=== PATIENT | male | born 1945 | race Two or more races ===

== ENCOUNTER 2016-12-13 14:38 | Emergency (ER) | payer BC, MEDICARE ==
[2016-12-13 15:03] VITALS: BP 126/46
[2016-12-13] MEDS ORDERED: Sodium Chloride 0.9% 1,000 ML IV SCH (15:15)
--- NOTE | 2016-12-13 15:19 | EDM.PDOC ---
ED HPI GENERAL MEDICAL PROBLEM - General Chief Complaint: ENT Problem Stated Complaint: COLLAPSED IN TUB, WEAKNESS, [id number] Time Seen by Provider: 12/13/16 15:15 Source of Information: Reports: Patient, Family () History Limitations: Reports: No Limitations - History of Present Illness INITIAL COMMENTS - FREE TEXT/NARRATIVE: 71 yo white male c/o being sick since 2016 and right sided jaw/neck mass with tenderness and fevers. Pt. has been treated with multiple oral antibiotics. Pt. also dx. with pneumonia recently. Pt. presents here w/ increasing weakness. Onset Date: 11/10/16 Onset Time: 09:00 Duration: Week(s):, Getting Worse (more weakness and continued fevers) Location: Reports: Neck (right side) Quality: Reports: Ache Severity: Moderate Improves with: Reports: Medication (oral antibiotics) Associated Symptoms: Reports: Malaise, Weakness Bilateral Ear Pain Score (Numeric/FACES): 7 - Related Data Allergies Allergy/AdvReac Type Severity Reaction Status Date / Time Penicillins Allergy Hives Verified 12/13/16 15:08 Home Meds: Home Meds metFORMIN [Glucophage XR] 500 mg PO BIDMEALS 10/05/15 [History] Glimepiride [Amaryl] 2 mg PO DAILY 12/13/16 [History] Lisinopril 20 mg PO DAILY 12/13/16 [History] traMADol HCl [Tramadol HCl] 25 mg PO PRN 12/13/16 [History] Past Medical History HEENT History: Reports: Impaired Vision Cardiovascular History: Reports: High Cholesterol, Hypertension Respiratory History: Reports: Pneumonia, Recurrent Genitourinary History: Reports: Chronic Renal Insuffiency, Other (See Below) Other Genitourinary History: Spouse states that pt has chronic liver and kidney problems Endocrine/Metabolic History: Reports: Diabetes, Type II - Past Surgical History HEENT Surgical History: Reports: LASIK, Naso-Sinus Surgery Social & Family History - Family History Family Medical History: Noncontributory - Tobacco Use Smoking Status *Q: Never Smoker Second Hand Smoke Exposure: No - Caffeine Use Caffeine Use: Reports: Coffee, Tea - Recreational Drug Use Recreational Drug Use: No - Living Situation & Occupation Living situation: Reports: , with Spouse Occupation: Employed ED ROS ENT - Review of Systems Review Of Systems: See Below Constitutional: Reports: Malaise, Weakness, Decreased Appetite HEENT: Reports: Throat Pain Respiratory: Reports: No Symptoms Cardiovascular: Reports: No Symptoms Endocrine: Reports: No Symptoms GI/Abdominal: Reports: No Symptoms : Reports: No Symptoms Musculoskeletal: Reports: No Symptoms Skin: Reports: No Symptoms Neurological: Reports: No Symptoms Psychiatric: Reports: No Symptoms Hematologic/Lymphatic: Reports: No Symptoms Immunologic: Reports: No Symptoms ED EXAM, ENT - Physical Exam Exam: See Below Exam Limited By: No Limitations General Appearance: Alert, WD/WN, No Apparent Distress Eye Exam: Bilateral Eye: EOMI, PERRL Ears: Normal External Exam, Normal Canal, Hearing Grossly Normal Nose: Normal Inspection, Normal Mucousa Mouth/Throat: Normal Inspection, Normal Gums, Tonsillar Swelling (right side), Other (Tender firm mass to right side angle of jaw and neck) Head: Atraumatic, Normocephalic Neck: Tender Lateral (right side) Respiratory/Chest: No Respiratory Distress, Lungs Clear, Normal Breath Sounds Cardiovascular: Normal Peripheral Pulses, Regular Rate, Rhythm, No Edema GI/Abdominal: Normal Bowel Sounds, Soft, Non-Tender Back: Normal Inspection Extremities: Normal Inspection, Normal Range of Motion, Non-Tender Neurological: Alert, Oriented, CN II-XII Intact, Normal Cognition Psychiatric: Normal Affect, Normal Mood Skin: Warm, Dry, Intact Lymphatic: No Adenopathy Course - Vital Signs Last Recorded V/S: Last Vital Signs Temp 36.3 C 12/13/16 15:01 Pulse 112 H 12/13/16 15:01 Resp 16 12/13/16 15:01 BP 126/46 L 12/13/16 15:01 Pulse Ox 96 12/13/16 15:01 - Orders/Labs/Meds Orders: Active Orders 24 hr Category Date Time Status Soft Tissue Neck w Cont [CT] Urgent Exams 12/13/16 15:13 Ordered CULTURE BLOOD [BC] Stat Lab 12/13/16 15:30 Results CULTURE BLOOD [BC] Stat Lab 12/13/16 15:40 Received UA W/MICROSCOPIC [URIN] Stat Lab 12/13/16 17:49 Uncollected Sodium Chloride 0.9% [Normal Saline] 1,000 ml Med 12/13/16 16:27 Ordered IV .BOLUS Medication Orders Sodium Chloride (Normal Saline) 1,000 mls @ 500 mls/hr IV .BOLUS ONE Stop: 12/13/16 18:26 Labs: Laboratory Tests 12/13/16 12/13/16 Range/Units 15:30 15:30 WBC 10.5 H (5.0-10.0) 10^3/uL RBC 3.66 L (4.6-6.2) 10^6/uL Hgb 10.6 L (14.0-18.0) g/dL Hct 32.0 L (40.0-54.0) % MCV 87.4 (80-100) fL MCH 29.0 (27.0-34.0) pg MCHC 33.1 (33.0-35.0) g/dL Plt Count 125 L (150-450) 10^3/uL Neut % (Auto) 42.9 (42.2-75.2) % Lymph % (Auto) 16.9 L (20.5-50.1) % [place] % (Auto) 38.2 H (2-8) % Eos % (Auto) 1.3 (1.0-3.0) % Baso % (Auto) 0.7 (0.0-1.0) % Add Manual Diff Yes Neutrophils % (Manual) 55 % Band Neutrophils % 14 % Lymphocytes % (Manual) 10 % Monocytes % (Manual) 19 % Eosinophils % (Manual) 2 % ESR 28 H (0-15) mm/hr Sodium 129 L (135-145) mmol/L Potassium 4.5 (3.6-5.0) mmol/L Chloride 96 L (101-111) mmol/L Carbon Dioxide 21.0 (21.0-31.0) mmol/L Anion Gap 16.5 BUN 29 H (7-18) mg/dL Creatinine 1.5 H (0.6-1.3) mg/dL Est Cr Clr Drug Dosing 47.99 mL/min Estimated GFR (MDRD) 46 BUN/Creatinine Ratio 19.33 Glucose 153 H (74-105) mg/dL Calcium 9.0 (8.4-10.2) mg/dl Total Bilirubin 1.0 (0.2-1.0) mg/dL AST 130 H (10-42) IU/L ALT 105 H (10-60) IU/L Alkaline Phosphatase 173 H (42-121) IU/L Total Protein 6.5 L (6.7-8.2) g/dl Albumin 3.2 (3.2-5.5) g/dl Globulin 3.3 Albumin/Globulin Ratio 0.97 Meds: Medications Generic Name Dose Route Start Last Admin Trade Name Freq PRN Reason Stop Dose Admin Sodium Chloride 1,000 mls @ 500 mls/hr 12/13/16 16:27 Normal Saline IV 12/13/16 18:26 .BOLUS ONE Discontinued Medications Generic Name Dose Route Start Last Admin Trade Name Freq PRN Reason Stop Dose Admin Sodium Chloride 1,000 mls @ 100 mls/hr 12/13/16 15:15 12/13/16 16:06 Normal Saline IV 100 mls/hr ASDIRECTED FRANCOIS Administration Iopamidol 75 ml 12/13/16 16:26 12/13/16 16:47 Isovue-300 (61%) IVPUSH 12/13/16 16:27 75 ml ONETIME ONE Administration Departure - Departure Time of Disposition: 17:53 Disposition: Home, Self-Care 01 Condition: Good Clinical Impression: Palpable mass of neck - Discharge Information Forms: ED Department Discharge Additional Instructions: Your case was discussed with Dr. Cartagena the ENT specialist @ [facility] in [place]. He advises you to call clinic for appt. [phone] [place] [address]. [place] [address] - My Orders Last 24 Hours: My Active Orders 12/13/16 15:13 Soft Tissue Neck w Cont [CT] Urgent 12/13/16 15:30 CULTURE BLOOD [BC] Stat 12/13/16 15:40 CULTURE BLOOD [BC] Stat 12/13/16 16:27 Sodium Chloride 0.9% [Normal Saline] 1,000 ml IV .BOLUS 12/13/16 17:49 UA W/MICROSCOPIC [URIN] Stat - Assessment/Plan Last 24 Hours: My Active Orders 12/13/16 15:13 Soft Tissue Neck w Cont [CT] Urgent 12/13/16 15:30 CULTURE BLOOD [BC] Stat 12/13/16 15:40 CULTURE BLOOD [BC] Stat 12/13/16 16:27 Sodium Chloride 0.9% [Normal Saline] 1,000 ml IV .BOLUS 12/13/16 17:49 UA W/MICROSCOPIC [URIN] Stat
[2016-12-13] MEDS ORDERED: Iopamidol 612 MG/ML 75 ML Bottle IVPUSH ONE (16:26)
[2016-12-13] MEDS ORDERED: Sodium Chloride 0.9% 1,000 ML IV ONE (16:27)
--- NOTE | 2016-12-13 16:53 | CR ---
Clinical history: 71-year-old male past medical history of "pneumonia". Interpretation: Less than optimal inspiratory effort and subtle lingular atelectasis or postinflammat ory fibrosis. Normal cardiac silhouette without cephalization vascular flow, alveolar edema or dependent effusion. No lung mass, hilar lymphadenopathy or acute focal lobar pneumonia.
== END 2016-12-13 18:20 | disposition home or self-care (01) ==
LOC: DL.ED 14:38
DX: R22.1 Localized swelling, mass and lump, neck (principal); E78.00 Pure hypercholesterolemia, unspecified; H54.7 Unspecified visual loss; E11.22 Type 2 diabetes mellitus with diabetic chronic kidney disease; I12.9 Hypertensive chronic kidney disease with stage 1 through stage 4 chronic kidney disease, or unspecified chronic kidney disease; Z88.0 Allergy status to penicillin; Z79.899 Other long term (current) drug therapy
CPT/HCPCS: 36415; 70491; 71020; 80053; 81001; 85025; 85651; 87040; 96360; 96361; 99284; J7030; Q9967